=== PATIENT | male | born 1975 | race Two or more races ===

== ENCOUNTER 2025-07-11 08:02 | Emergency (ER) | payer MEDICAID, SELFPAY ==
[2025-07-11 08:10] VITALS: BP 147/99; PULSE 78; RESP 18; TEMP 36.9; O2SAT 99
--- NOTE | 2025-07-11 08:16 | XR_ITS ---
Examination: Abdomen sonogram, Limited Date and time of exam: July 11, 2025, 0937 hours INDICATIONS: Epigastric pain beginning 4 days ago. Technique: Real-time pulido scale transabdominal sonographic images of the upper abdomen obtained. Findings: Normal gallbladder. Normal common bile duct 0.2 cm Pancreatic head 2.4 cm Liver 13.3 cm smooth contour Normal hepatopedal portal venous Patent IVC IMPRESSION: Normal gallbladder.
--- NOTE | 2025-07-11 08:19 | EDNOTE_ITS ---
ED Abdominal Pain RME/HPI General Chief Complaint: Abdominal Pain Stated complaint: TOOK IBU 1,600MG FRI. SEVERE STOMACHACHE. ALLERGY. Time seen by provider: 07/11/25 08:17 Arrival date/time: 07/11/25 08:02 49-year-old male with no known medical history presents to the emergency room with a chief complaint of right upper quadrant abdominal pain. Patient states he took ibuprofen on Friday and since taking it his pain is significantly gotten worse. Source: patient Mode of arrival: ambulatory Limitations: no limitations Related Data Previous Rx's ?Medication ?Instructions ?Recorded ofloxacin 0.3 % eye drops See Rx Instructions ophthalm ic 10/08/20 (eye) .COMPLEX #10 mL Allergies Allergy/AdvReac Type Severity Reaction Status Date / Time ibuprofen Allergy Severe Abdominal Verified 07/11/25 08:06 Pain Review of Systems Review of Systems Systems Reviewed: All systems reviewed, normal except as documented Constitutional Constitutional: Reports system reviewed and no additional complaints, except as documented, Denies fatigue, Denies fever(s), Denies headache(s) and Denies weakness Eyes Eyes: Reports system reviewed and no additional complaints, except as documented, Denies blurry vision and Denies change in vision ENT Ears, Nose, Mouth, and Throat: Reports system reviewed and no additional complaints, except as documented, Denies otalgia, Denies headache(s), Denies nasal congestion, Denies throat swelling and Denies vertigo Cardiovascular Cardiovascular: Reports system reviewed and no additional complaints, except as documented, Denies chest pain, Denies dyspnea and Denies dyspnea on exertion Respiratory Respiratory: Reports system reviewed and no additional complaints, except as documented, Denies chest congestion, Denies cough, Denies dyspnea, Denies dyspnea on exertion and Denies wheezing Gastrointestinal Gastrointestinal: Reports system reviewed and no additional complaints, except as documented, Denies abdominal pain, Denies cramping, Denies nausea and Denies vomiting Genitourinary Genitourinary: Reports system reviewed and no additional complaints, except as documented, Denies dysuria and Denies hematuria Musculoskeletal Musculoskeletal: Reports system reviewed and no additional complaints, except as documented and Denies back pain Integumentary/Breasts Skin/Breast: Reports system reviewed and no additional complaints, except as documented and Denies wounds Neurologic Neurologic: Reports system reviewed and no additional complaints, except as documented, Denies confusion, Denies headache(s), Denies lack of coordination, Denies vertigo and Denies weakness Psychiatric Psychiatric: Reports system reviewed and no additional complaints, except as documented, Denies anxiety, Denies confusion, Denies depression, Denies paranoia, Denies suicidal ideation and Denies tactile hallucinations Endocrine Endocrine: Reports system reviewed and no additional complaints, except as documented and Denies fatigue Hematologic/Lymphatic Hematologic/Lymphatic: Reports system reviewed and no additional complaints, except as documented and Denies lymphadenopathy Allergic/Immunologic Allergic/Immunologic: Reports system reviewed and no additional complaints, except as documented, Denies throat swelling, Denies urticaria and Denies wheezing Past Medical History Past Medical History CARDIAC: Negative Congestive Heart Failure RESPIRATORY: Negative Chronic Obstructive Pulmonary Disease (COPD) GENITOURINARY: Negative Renal Disease ENDOCRINE: Negative Diabetes Mellitus Type 1 or Diabetes Mellitus Type 2 Social History SMOKING STATUS: Current every day smoker ED Exam General Limitations: Present no limitations General appearance: Present alert and in no apparent distress Head Head exam: Present atraumatic Eye Eye exam: Present normal appearance, PERRL and EOMI ENT ENT exam: Present normal exam, normal oropharynx and mucous membranes moist Neck Neck exam: Present normal inspection, full ROM and trachea midline Chest Chest inspection: Present normal inspection and symmetric chest wall rise Respiratory Respiratory exam: Present normal lung sounds bilaterally Cardiovascular Cardiovascular exam: Present regular rate, normal rhythm and normal heart sounds Abdominal Exam Abdominal exam: Present soft, tenderness and normal bowel sounds; Absent Miller's sign Abdominal tenderness: Present RUQ, epigastrium and moderate Extremities Exam Extremities exam: Present normal inspection and full ROM Back Exam Back exam: Present normal inspection and full ROM Neurological Exam Neurological exam: Present alert, oriented X3 and CN II-XII intact Psychiatric Psychiatric exam: Present normal affect and normal mood Skin Skin exam: Present warm, dry, intact and normal color Course Quality Measures none Orders Category Date Time Status US gall bladder Stat Exams 07/11/25 08:16 Completed CBC Stat Lab 07/11/25 08:51 Completed CMP [Comprehensive Metabolic Panel] Stat Lab 07/11/25 08:51 Completed Lipase Stat Lab 07/11/25 08:51 Completed UA [Urinalysis] Stat Lab 07/11/25 08:40 Completed Urine Culture Stat Lab 07/11/25 08:40 Received HYDROcodone*/APAP 5/325 [[place] 5/325] Med 07/11/25 08:16 Discontinued 1 tab PO X1 ONE Ondansetron Odt [Zofran Odt] Med 07/11/25 08:16 Discontinued 4 mg PO X1 ONE mg Hyd/Al Hyd/Vijay Susp [Maalox Susp] Med 07/11/25 08:22 Discontinued 30 ml PO X1 ONE Vital Signs Vital signs: Vital Signs Temperature 98.5 F 07/11/25 08:10 Pulse Rate 78 07/11/25 08:10 Respiratory Rate 18 07/11/25 08:10 Blood Pressure 147/99 H 07/11/25 08:10 Pulse Oximetry (%) 99 07/11/25 08:10 Oxygen Delivery Method Room Air 07/11/25 08:10 Abdominal Pain MDM MDM Narrative MDM Narrative:: 49-year-old male with no known medical history presents to the emergency room with a chief complaint of right upper quadrant abdominal pain. Patient states he took ibuprofen on Friday and since taking it his pain is significantly gotten worse. Patient is hemodynamically stable and in no apparent distress. Patient is afebrile not tachycardic not tachypneic Physical examination shows right upper quadrant abdominal pain and tenderness that radiates to the epigastric area. Patient states it is a 10 out of 10. Ultrasound of the gallbladder was completed and was negative for any cholelithiasis or cholecystitis. CBC CMP were all within normal limits. Patient denies any right lower quadrant pain or back pain. Patient states he took 1600 mg of ibuprofen on Friday and since then has had stomach pain. Patient denies any blood in the stool. Patient was discharged and educated to follow-up with his primary care provider and return to the emergency room for any evidence of worsening signs or symptoms Patient data External records reviewed:: [facility] Clinical information provided by:: patient Social determinants that could affect healthcare access:: none Patient has the following chronic illnesses:: No chronic illness How is presenting disease/condition affected by chronic disease/condition?: no chronic disease Evaluation data The following diagnostics were reviewed and interpreted by me:: lab results and radiology exam(s) Lab and/or radiology exams considered but not ordered:: Labs and radiology exams considered and ordered Interpretation Summary: Ultrasound gallbladder-Findings: Normal gallbladder. Normal common bile duct 0.2 cm Pancreatic head 2.4 cm Liver 13.3 cm smooth contour Normal hepatopedal portal venous Patent IVC IMPRESSION: Normal gallbladder. Medications / Prescriptions Medications or Prescriptions considered but not ordered:: Medication given Medication administrations:: Medication Administration History Discontinued Medications Hydrocodone Bitart/Acetaminophen (Hydrocodone/Apap 5/325 Tablet) 1 tab PO X1 ONE Stop: 07/11/25 08:17 Last Admin: 07/11/25 08:45 Dose: Not Given Documented By: ARF Non-Admin Reason: Patient Refused Al Hydrox/Mg Hydrox/Simethicone (Mg Hyd/Al Hyd/Vijay (Maalox Reg) Susp 30 Ml Udc) 30 ml PO X1 ONE Stop: 07/11/25 08:23 Last Admin: 07/11/25 08:45 Dose: 30 ml Documented By: ARF Ondansetron HCl (Ondansetron Odt 4 Mg Tabrap) 4 mg PO X1 ONE; Protocol Stop: 07/11/25 08:17 Last Admin: 07/11/25 08:45 Dose: 4 mg Documented By: ARF Medication given Consultations Consultation(s) initiated? (list below): No Diagnosis Differential diagnosis abdominal pain: abdominal pain, constipation, gastroenteritis and other (Cholelithiasis/cholecystitis/gastritis) Most likely diagnosis given after review of the tests above:: Gastritis Admission Indicated Admission indicated?: not indicated Admission Request Was there a request for admission?: No Disposition Plan Disposition Plan: Discharge Discharge Attestation Discharge Attestation: The patient and all family members were given an opportunity to ask questions and understood the discharge instructions. Discharge instructions specifically effects, indications for sooner follow up or return to the emergency department, and the expected course of current diagnosis. Patient condition: Stable Discharge Plan Plan Patient Disposition: HOME (Self Care) Discharge Disposition comment: Stable Prescriptions/Referrals Prescriptions/Med Rec: No Action ofloxacin 0.3 % drops See Rx Instructions .ROUTE .COMPLEX Qty: 10 0RF Rx Instructions: put 1-2 drps into affected eye(s) every 2-4 h x 2 days, then 1-2 drps 4 time s/day days 3-7 Referrals: Shayne Watson MD [Primary Care Provider] - In 1 week Problem List Clinical Impression: Gastritis Patient/Caregiver Discharge Instructions Education Materials: ED Gastritis (Adult), ED PEPTIC ULCER vs GASTRITIS Additional Instructions: Please follow-up with your primary care provider in the next 24 to 48 hours Your ultrasound of your gallbladder was within normal limits. Your blood work and urinalysis were within normal limits. Please follow-up with your primary care provider and avoid taking such a high dose of ibuprofen as this could be the cause of your stomach pain For any evidence of worsening signs or symptoms return the emergency room immediately Print Language: Upper Sorbian Stand Alone Forms: Eri Award Info., Patient Portal Info Letter PA/PACK TRAIN DRIVER Supervising Physician PA/PACK TRAIN DRIVER Supervising Physician: Dr. Segura
[2025-07-11] MEDS: ONDANSETRON ODT 4 MG TABRAP PO (08:45)
[2025-07-11] MEDS: MG HYD/AL HYD/SIME (Maalox Reg) SUSP 30 ML UDC PO (08:45)
[2025-07-11 09:10] LABS: Basophils # (Auto) 0.0 Thou/mm3 (0.0-0.2); Basophils % (Auto) 0 % (0-2.5); Eosinophils # (Auto) 0.0 Thou/mm3 (0.0-0.5); Eosinophils % (Auto) 0 % (0-10); Hematocrit 43.6 % (41.0-53.0); Hemoglobin 15.2 g/dL (13.5-16.0); Immature Granulocytes Auto 0.03 Thou/mm3 (0.00-0.00); Lymphocytes # (Auto) 1.5 Thou/mm3 (1.0-4.8); Lymphocytes % (Auto) 14 % (10-50); Mean Corpuscular HGB Conc 34.9 g/dl (31.0-37.0); Mean Corpuscular Hemoglobin 32.7 pg (25.0-35.0); Mean Corpuscular Volume 94 fL (80-100); Monocytes # (Auto) 0.7 Thou/mm3 (0.0-0.8); Monocytes % (Auto) 7 % (0-12); Neutrophils # (Auto) 8.0 Thou/mm3 (1.8-7.7); Neutrophils % (Auto) 78 % (37-80); Nucleated Red Blood Cell # 0.00 Thou/mm3 (0.00-0.00); Nucleated Red Blood Cell % 0 /100 WBC (0); Platelet Count 274 Thou/mm3 (140-440); RDW Standard Deviation 44.2 fL (35.1-43.9); Red Blood Count 4.65 Miln/mm3 (4.50-5.90); White Blood Count 10.3 Thou/mm3 (3.8-10.6)
[2025-07-11 09:30] LABS: Amorphous Crystals,Urine Present (Absent); Bilirubin,Urine Negative (Negative); Blood,Urine Negative (Negative); Collection Type, Urine Clean Catch; Color,Urine Yellow (Lt Yel-Yel); Glucose, Urine Negative (Negative); Ketones,Urine 1+ (Negative); Leukocyte Esterase,Urine Negative (Negative); Nitrite,Urine Negative (Negative); PH,Urine 7.0 (5.0-7.0); Protein,Urine Trace (Neg - Trace); RBC,Urine 2 /hpf (0-3); Specific Gravity,Urine 1.028 (1.001-1.035); Squamous Epithelial Cell,Urine 0 /hpf (0-5); Urobilinogen,Urine Negative mg/dL (0.0-1.0); WBC,Urine 1 /hpf (0-5)
[2025-07-11 09:37] LABS: Clarity,Urine Hazy (Clear/Hazy)
[2025-07-11 09:37] LABS: Alanine Aminotransferase 15 U/L (10-49); Albumin, Serum 4.2 gm/dL (3.5-5.0); Albumin/Globulin Ratio 1.8 (1.2-2.2); Alkaline Phosphatase 108 U/L (46-116); Anion Gap 7 (7-16); Aspartate Amino Transferase 17 U/L (0-34); BUN/Creatinine Ratio 9 Ratio (12-20); Bilirubin,Total 0.3 mg/dL (0.3-1.2); Blood Urea Nitrogen 7 mg/dL (9-23); Calcium 9.5 mg/dL (8.3-10.6); Calcium (Corrected) 9.5 mg/dL (8.5-10.1); Carbon Dioxide 30.9 mMol/L (20.0-31.0); Chloride 100 mMol/L (98-107); Creatinine (Component) 0.8 mg/dL (0.6-1.3); Globulin 2.3 gm/dL (2.3-3.5); Glucose 121 mg/dL (74-106); Lipase 20 U/L (12-53); Osmolality,Calculated 274 (275-295); Potassium 4.8 mMol/L (3.4-5.1); Sodium 138 mMol/L (136-145); Total Protein 6.5 gm/dL (5.7-8.2); eGFR > 60 See Note
[2025-07-11] MEDS: KETOROLAC INJ 60 MG/2 ML VIAL 30 MG IM (11:31)
[2025-07-11 11:33] VITALS: PULSE 78; RESP 20
== END 2025-07-11 11:35 | disposition home or self-care (01) ==
PROVIDERS: Nurse Practitioner Family; Emergency Provider Emergency Medicine; PCP Family Medicine
DX: K29.70 Gastritis, unspecified, without bleeding (principal)
CPT/HCPCS: 36415; 76705; 80053; 81001; 83690; 85025; 87086; 96372; 99283; J1885; Q0162; A9270

== ENCOUNTER 2025-08-01 00:14 | Emergency (ER) | payer MEDICAID, SELFPAY ==
[2025-08-01 00:16] VITALS: BMI 25.0
[2025-08-01 00:36] VITALS: BP 157/101; PULSE 89; RESP 20; TEMP 36.9; O2SAT 99
--- NOTE | 2025-08-01 00:39 | XR_ITS ---
Examination: Abdomen sonogram, Limited Date and time of exam: August 01, 2025, 0044 hrs. Indications: Right-sided abdominal pain beginning several years ago Technique: Real-time pulido scale transabdominal sonographic images of the upper abdomen obtained. Findings: Normal gallbladder. Normal common bile duct 0.2 cm. Pancreatic head 2.7 cm. Liver 12.4 cm smooth contour no focal liver lesions Normal hepatopedal portal venous flow Patent IVC Impression: Normal gallbladder
[2025-08-01 01:01] LABS: Collection Type, Urine Clean Catch; Squamous Epithelial Cell,Urine 0 /hpf (0-5)
[2025-08-01 01:27] LABS: Bacteria,Urine Rare; Bilirubin,Urine Negative (Negative); Blood,Urine Negative (Negative); Clarity,Urine Clear (Clear/Hazy); Color,Urine Lt-Yellow (Lt Yel-Yel); Glucose, Urine Negative (Negative); Ketones,Urine Negative (Negative); Leukocyte Esterase,Urine Negative (Negative); Nitrite,Urine Negative (Negative); PH,Urine 6.5 (5.0-7.0); Protein,Urine Negative (Neg - Trace); RBC,Urine 5 /hpf (0-3); Specific Gravity,Urine 1.028 (1.001-1.035); Urobilinogen,Urine Negative mg/dL (0.0-1.0); WBC,Urine 2 /hpf (0-5)
[2025-08-01 01:27] LABS: Basophils # (Auto) 0.0 Thou/mm3 (0.0-0.2); Basophils % (Auto) 0 % (0-2.5); Eosinophils # (Auto) 0.2 Thou/mm3 (0.0-0.5); Eosinophils % (Auto) 2 % (0-10); Hematocrit 45.3 % (41.0-53.0); Hemoglobin 15.5 g/dL (13.5-16.0); Immature Granulocytes Auto 0.04 Thou/mm3 (0.00-0.00); Lymphocytes # (Auto) 2.5 Thou/mm3 (1.0-4.8); Lymphocytes % (Auto) 24 % (10-50); Mean Corpuscular HGB Conc 34.2 g/dl (31.0-37.0); Mean Corpuscular Hemoglobin 32.1 pg (25.0-35.0); Mean Corpuscular Volume 94 fL (80-100); Monocytes # (Auto) 0.7 Thou/mm3 (0.0-0.8); Monocytes % (Auto) 7 % (0-12); Neutrophils # (Auto) 7.0 Thou/mm3 (1.8-7.7); Neutrophils % (Auto) 67 % (37-80); Nucleated Red Blood Cell # 0.00 Thou/mm3 (0.00-0.00); Nucleated Red Blood Cell % 0 /100 WBC (0); Platelet Count 399 Thou/mm3 (140-440); RDW Standard Deviation 43.5 fL (35.1-43.9); Red Blood Count 4.83 Miln/mm3 (4.50-5.90); White Blood Count 10.4 Thou/mm3 (3.8-10.6)
[2025-08-01 01:28] LABS: Alanine Aminotransferase 20 U/L (10-49); Albumin, Serum 4.2 gm/dL (3.5-5.0); Albumin/Globulin Ratio 1.7 (1.2-2.2); Alkaline Phosphatase 117 U/L (46-116); Amylase 57 U/L (30-118); Anion Gap 7 (7-16); Aspartate Amino Transferase 18 U/L (0-34); BUN/Creatinine Ratio 10 Ratio (12-20); Bilirubin,Total 0.3 mg/dL (0.3-1.2); Blood Urea Nitrogen 8 mg/dL (9-23); Calcium 9.7 mg/dL (8.3-10.6); Calcium (Corrected) 9.7 mg/dL (8.5-10.1); Carbon Dioxide 31.1 mMol/L (20.0-31.0); Chloride 102 mMol/L (98-107); Creatinine (Component) 0.8 mg/dL (0.6-1.3); Estimated Creatinine Clearance 96.1 mL/min (>60); Globulin 2.5 gm/dL (2.3-3.5); Glucose 131 mg/dL (74-106); Osmolality,Calculated 279 (275-295); Potassium 4.6 mMol/L (3.4-5.1); Sodium 140 mMol/L (136-145); Total Protein 6.7 gm/dL (5.7-8.2); eGFR > 60 See Note
[2025-08-01] MEDS: MORPHINE SULF INJ 4 MG/ML VIAL IM (01:38)
--- NOTE | 2025-08-01 02:36 | PRELIM_ITS ---
Gallbladder ultrasound. August 01, 2025 at 0048 hours Clinical history: Gallstone.Right sided abdominal pain x years. No prior study is available for comparison. Findings: The liver is normal in echogenicity with smooth borders. No intrahepatic biliary ductal dilatation. The main portal vein is patent and demonstrates hepatopetal flow. No gallbladder calculus, wall thickening or pericholecystic fluid is demonstrated. The common bile duct is normal in caliber at 2 mm. The evaluation of the pancreas is limited due to bowel gas. The inferior vena cava to the extent visualized is within normal limits. Impression: No obvious abnormality. Report Electronically Signed By: Dane Cunningham 08/01/2025 2:36:24 AM [EST]
--- NOTE | 2025-08-01 03:30 | PC.NURSE ---
NAME HAS BEEN CALLED 4 TIMES BY 0330. STAFF WENT OUTSIDE AND CALLED FOR HIM PT LEFT WITHOUT NOTIFYING STAFF.
--- NOTE | 2025-08-01 04:38 | PD.EDRME ---
Rapid Medical Screening Exam RME Arrival date/time: 08/01/25 00:14 This is a case of a 49-year-old male who came in in the emergency room due to right-sided abdominal pain radiating to the right flank associated with nausea vomiting for 2 days worsening of the symptoms this patient decided to sought consult here in the emergency room Chief Complaint: Abdominal Pain Time Seen by Provider: 08/01/25 00:35 Vital signs: Vital Signs Temperature 98.4 F 08/01/25 00:36 Pulse Rate 89 08/01/25 00:36 Respiratory Rate 20 08/01/25 00:36 Blood Pressure 157/101 H 08/01/25 00:36 Pulse Oximetry (%) 99 08/01/25 00:36 Oxygen Delivery Method Room Air 08/01/25 00:36
== END 2025-08-01 03:30 | disposition left against medical advice (07) ==
LOC: SERX 01:42
PROVIDERS: Nurse Practitioner Family; Emergency Provider Emergency Medicine
DX: R10.9 Unspecified abdominal pain (principal); R11.2 Nausea with vomiting, unspecified; Z53.29 Procedure and treatment not carried out because of patient's decision for other reasons
CPT/HCPCS: 36415; 76705; 80053; 81001; 82150; 85025; 96372; 99283; J2270